=== PATIENT | female | born 1975 | race Hispanic/Latino ===

== ENCOUNTER 2022-09-06 17:49 | Emergency (ER) | payer BC, OTHER ==
[~2022-09-06] VITALS: Ht 152.4 cm; Wt 93.0 kg
[2022-09-06 18:49] LABS: BASOPHILS % (AUTO) 1.1 % (0.0-5.0); EOSINOPHILS % (AUTO) 2.8 % (0.0-8.0); MEAN CORPUSCULAR HEMOGLOBIN 31.6 pg (27.0-33.0); MEAN CORPUSCULAR HGB CONC 34.5 g/dL (32.0-36.0); MEAN CORPUSCULAR VOLUME 91.5 fL (79-99); MONOCYTES % (AUTO) 7.2 % (3.0-13.0); NEUTROPHILS % (AUTO) 61.1 % (40.0-77.0); PLATELET COUNT (AUTO) 186 K/uL (130-400); RED BLOOD CELL COUNT(AUTO) 4.37 MIL/uL (4.00-5.50); RED CELL DISTRIBUTION WIDTH 12.6 % (11.0-15.5); WHITE BLOOD COUNT (AUTO) 5.3 K/uL (4.8-10.8)
[2022-09-06 19:12] LABS: CREATININE 0.8 mg/dL (0.5-1.5); POTASSIUM 3.7 mmol/L (3.5-5.1)
[2022-09-06 19:27] LABS: ALBUMIN 4.6 g/dL (3.5-5.0); MAGNESIUM 1.9 mg/dL (1.80-2.40); TOTAL PROTEIN, SERUM 7.7 g/dL (6.0-8.3)
[2022-09-06 19:47] VITALS: BP 137/86
[2022-09-06 20:17] LABS: THYROID STIMULATING HORMONE 1.41 uIU/mL (0.36-3.74)
[2022-09-06 20:26] LABS: APPEARANCE,URINE CLOUDY (CLEAR); BILIRUBIN,URINE NEGATIVE (NEGATIVE); COLOR,URINE YELLOW (YELLOW); GLUCOSE, URINE (UA) NEGATIVE (NEGATIVE); KETONES,URINE NEGATIVE (NEGATIVE); LEUKOCYTE ESTERASE ,URINE 25 Leu/uL (NEGATIVE); NITRATE,URINE NEGATIVE (NEGATIVE); OCCULT BLOOD,URINE NEGATIVE (NEGATIVE); PROTEIN,URINE 20 mg/dL (NEGATIVE)
[2022-09-06 20:27] LABS: AMPHET/METH SCREEN,URINE NEGATIVE (NEGATIVE); BARBITURATE SCREEN, URINE NEGATIVE (NEGATIVE); BENZODIAZEPINES SCREEN,URINE NEGATIVE (NEGATIVE); CANNABINOID SCREEN,URINE NEGATIVE (NEGATIVE); COCAINE SCREEN,URINE NEGATIVE (NEGATIVE); OPIATE SCREEN,URINE NEGATIVE (NEGATIVE); PHENCYCLIDINE SCREEN,URINE NEGATIVE (NEGATIVE)
[2022-09-06 20:29] LABS: BACTERIA,URINE RARE /HPF (None Seen); MUCUS,URINE RARE LPF (None Seen); SQUAMOUS EPITHELIAL CELL,UR MOD /HPF (0-2)
== END 2022-09-06 20:36 | disposition home or self-care (01) ==
LOC: EDH 17:49
DX: R00.0 Tachycardia, unspecified (principal); R42 Dizziness and giddiness; R06.02 Shortness of breath; Z88.0 Allergy status to penicillin; Z88.6 Allergy status to analgesic agent
CPT/HCPCS: 36415; 80050; 80053; 80305; 81001; 83605; 83735; 84443; 84484; 85025; 87088; 93005

== ENCOUNTER 2023-03-06 12:56 | Emergency (ER) | payer BC ==
[~2023-03-06] VITALS: Ht 149.9 cm; Wt 100.7 kg
[2023-03-06 13:22] VITALS: BP 136/86
== END 2023-03-06 13:45 | disposition home or self-care (01) ==
LOC: EDH 12:56
DX: R04.0 Epistaxis (principal); Z88.6 Allergy status to analgesic agent; Z90.49 Acquired absence of other specified parts of digestive tract; Z88.0 Allergy status to penicillin
CPT/HCPCS: 99281

== ENCOUNTER 2024-04-18 19:44 | Emergency (ER) | payer BC ==
[~2024-04-18] VITALS: Ht 149.9 cm; Wt 96.2 kg
[~2024-04-18 19:44] MED LIST: LACT1TAB26 PO; LEVO-70 PO; METR-172 PO
[2024-04-18 20:09] VITALS: BP 147/88; PULSE 90; RESP 18; O2SAT 100
== END 2024-04-18 20:28 | disposition home or self-care (01) ==
LOC: EDH 19:44
DX: S63.592A Other specified sprain of left wrist, initial encounter (principal); W18.39XA Other fall on same level, initial encounter; Y93.89 Activity, other specified; Y92.89 Other specified places as the place of occurrence of the external cause; Y99.8 Other external cause status
CPT/HCPCS: 29125; 73110

== ENCOUNTER 2025-02-19 15:49 | Emergency (ER) | payer BC ==
[~2025-02-19] VITALS: Ht 149.9 cm; Wt 104.3 kg
[2025-02-19] MEDS: Solu-medROL 125MG VIAL IVP ONE (16:11)
[2025-02-19] MEDS: EPINEPHrine PF 1MG (1:1,000) 1 MG/ML AMP IM ONE (16:11)
[2025-02-19] MEDS: LACTATED RINGERS 1000ML 1,000 ML IV ONE (16:12)
[2025-02-19] MEDS: DiphenhydrAMINE HCL 50 MG/ML VIAL IV ONE (16:12)
--- NOTE | 2025-02-19 16:19 | NUR ---
CODE STROKE CALLED PT MOVED TO ED ROOM 7
[2025-02-19 16:48] VITALS: BP 144/75; PULSE 87; RESP 18; TEMP 98.2; O2SAT 97
--- NOTE | 2025-02-19 17:20 | ERN ---
General Chief Complaint: Allergic Reaction Stated Complaint: ALLERGIC REACTION TO LYSOL Time Seen by MD: 15:50 History of Present Illness Initial Comments 49-year-old female who presents for allergic reaction. Patient has a known allergy to Lysal. She came in contact with the at work today. She immediately felt tightness in her throat and had a raspy voice with coughing. She reports she has had significant airway compromise for in the past but has never been intubated. She has not taken any medications prior. She has been in her normal state of health prior to the incident today. Allergies: Coded Allergies: Penicillins (Unverified Allergy, Unknown, 09/06/22) aspirin (Unverified Allergy, Unknown, 09/06/22) morphine (Unverified Allergy, Unknown, 09/18/23) Home Meds Active Scripts Epinephrine (Epinephrine) 0.3 Mg/0.3 Ml Auto.injct, 1 SYR IM ONCE for 1 Day, #0.6 ML 0 Refills Prov:SARA GRAY DO 02/19/25 Prednisone (Prednisone) 20 Mg Tablet, 1 TAB PO BID for 5 Days, #10 TAB 0 Refills Prov:SARA GRAY DO 02/19/25 Lactobacillus Acidophilus (Probiotic Acidophilus) 2 Billion Cell Tablet, 1 EACH PO BID for 10 Days, #20 TAB Prov:SHELBY VIVEROS NP 09/21/23 Metronidazole (Metronidazole) 500 Mg Tablet, 500 MG PO TID for 10 Days, #30 TAB Prov:SHELBY VIVEROS NP 09/21/23 Levofloxacin (Levofloxacin) 500 Mg Tablet, 500 MG PO DAILY for 10 Days, #10 TAB Prov:SHELBY VIVEROS NP 09/21/23 Past Medical History Past Medical History: No Pertinent History Medical History Other: LIVER CIRRHOSIS Past Surgical History: Other Surgical History Other: BACK Family History Family History: Negative Social History Social History: Negative, Lives with family Female( History) History: Not Applicable ROS Dictation CONSTITUTIONAL: No chills, no fever, no weakness, no diaphoresis, no malaise. HEAD/FACE: No signs of trauma. EENT: Upper airway tightness itching RESPIRATORY: No cough, no orthopnea, no SOB, no stridor, no wheezing. CARDIOVASCULAR: No chest pain, no edema, no palpitations, no syncope. GASTROINTESTINAL/ABDOMINAL: No abdominal pain, no constipation, no diarrhea, no nausea, no vomiting. GENITOURINARY: No abnormal discharge, no dysuria, no frequent urination, no hematuria. No complaints of pain in the genitals. MUSCULOSKELETAL: No back pain, no gout, no joint pain, no joint swelling, no muscle pain, no muscle stiffness, no neck pain. INTEGUMENTARY: No change in color, no change in hair/nails, no dryness, no lesion, no lumps, no rash. NEUROLOGICAL/PSYCH: No anxiety, not depressed, no emotional problem, no headac he, no numbness, no pre-existing deficit, no history of seizures, no tremors, no weakness. HEMATOLOGIC/LYMPHATIC: Not anemic, no history of blood clots, no apparent bleeding, no bruising, glands not swollen. All Systems Negative, Except as Noted. Physical Exam Physical Exam Dictation VITAL SIGNS: Reviewed. GENERAL APPEARANCE: Alert, oriented x3, moderate distress HEAD AND FACE: Non-traumatic. EYES: PERRL, pink conjunctivas, eyelid no trauma, anterior chamber clear. EARS: Pinnas intact and no signs of trauma or erythema. Ear canals clear and no discharge. TMs no erythema. NOSE: No discharge, no bleeding. OROPHARYNX: Mouth normal, teeth no caries, tongue pink. Pharynx clear, no erythema. Tonsils no exudates, no abscesses noted. Mucous membrane moist. NECK: Supple, non-tender, no thyromegaly, no masses, no JVD, no bruits. BREAST: Deferred. CHEST: No tenderness, no crepitus, no paradoxical movement, no retractions. LUNGS: Clear lung blandon on auscultation, no major respiratory distress, she was have a raspy voice and continues to cough. No stridor. The oral airway appears normal. No tongue swelling or mouth swelling. HEART: Regular rate, regular rhythm, no murmur, no gallops. VASCULAR: No peripheral edema. ABDOMEN: Soft, positive bowel sounds, nondistended, no guarding, nontender, no rebound, no masses no hepatomegaly, no splenomegaly, no Lucia's sign, no hernias. RECTAL: Deferred. GENITAL: Deferred. NEUROLOGICAL: Normal speech, gross motor function intact, gross sensory function intact. MUSCULOSKELETAL: Neck nontender, full range of motion, back nontender, full range of motion. EXTREMITIES: Nontender, full range of motion. SKIN: Color pink, dry, no turgor, no rash, no lacerations, no abrasions, no contusions. LYMPHATICS: Deferred. MDM CC: Allergic reaction tightness to throat after exposure to known allergen (lysal) Historian: patient Comorbidities: known allergy, obesity Limitations by social determinants of health: None Differential diagnosis: Allergic reaction, anaphylaxis, airway compromise Patient initially had stable vital signs but she was an obvious distress. She was raspy voice continue least cough and says that her throat feels tight. There is no obvious stridor, she was effectively moving air. Lung sounds are clear. There was no rash. Patient reports she had had significant compromise to her airway in the past but he was never been intubated due to similar exposure. Labs and studies: None indicated here in the ER Patient was having an allergic reaction since airway is involved and she has had significant problems in the past with a similar presentations, restarted IV. She received IV fluids, Solu-Medrol, but diphenhydramine. Also gave her IM epinephrine. Patient was monitored for 90 minutes here in the ER. Her symptoms dramatically improved. Re-evaluation: No longer coughing no stridor no airway compromise no rash. She reports that she feels back to baseline. Plan: We will DC with a prescription for prednisone recommend antihistamine. We will also give her a prescription for an EpiPen. We discussed how to use this and when to use this. I recommended that she follows up with her PCP as needed. Return to the emergency department as needed. ED Course Orders Procedure Category Date Status Time Lactated Ringers PHA 02/19/25 Complete 1000ml (Lactated 16:30 Methylprednisolone PHA 02/19/25 Complete Succ 125mg (Solu-Medr 16:30 Epinephrine Pf 1mg PHA 02/19/25 Complete (1:1,000) (Adrenaline 16:30 Diphenhydramine Hcl PHA 02/19/25 Complete (Benadryl Inj) 16:30 Current Medications Medications (Trade) Dose Ordered Sig/Bridgette Route PRN Reason Start Time Stop Time Status Last Admin Dose Admin Diphenhydramine HCl (BENAdryl INJ) 25 mg ONCE ONCE IV 02/19/25 16:30 02/19/25 16:31 DC 02/19/25 16:12 Epinephrine HCl (ADRENaline PF 1MG AMP) 0.3 mg ONCE ONCE IM 02/19/25 16:30 02/19/25 16:31 DC 02/19/25 16:11 Lactated Ringer's 1,000 ml @ 0 mls/hr ONCE ONCE IV 02/19/25 16:30 02/19/25 16:31 DC 02/19/25 16:12 Methylprednisolone Sodium Succinate (Solu-medROL 125MG) 125 mg ONCE ONCE IVP 02/19/25 16:30 02/19/25 16:31 DC 02/19/25 16:11 Vital Signs Date Time Temp Pulse Resp B/P (MAP) Pulse Ox O2 Delivery O2 Flow Rate FiO2 02/19/25 16:48 98.2 87 18 144/75 97 Room Air* 0 21 02/19/25 16:26 92 22 128/70 98 Room Air* 0 21 02/19/25 16:02 98.2 88 20 136/82 99 Room Air 0 DX & DISP Disposition: Discharge Departure Impression: Primary Impression: Allergic reaction Critical Time: 30 minutes (Critical Care Procedure NoteAuthorized and Performed by: meTotal critical care time: Approximately 36 minutesDue to a high probability of clinically significant, life threatening deterioration, the patient required my highest level of preparedness to intervene emergently and I personally spent this critical care time directly and personally managing the patient. This critical care time included obtaining a history; examining the patient; pulse oximetry; ordering and review of studies; arranging urgent treatment with development of a management plan; evaluation of patient's response to treatment; frequent reassessment; and, discussions with other providers.This critical care time was performed to assess and manage the high probability of imminent, life-threatening deterioration that could result in multi-organ failure. It was exclusive of separately billable procedures and treating other patients and teaching time.Please see MDM section and the rest of the note for further information on patient assessment and treatment.) Condition: Stable Scripts Epinephrine (Epinephrine) 0.3 Mg/0.3 Ml Auto.injct 1 SYR IM ONCE for 1 Day, #0.6 ML 0 Refills Prov: SARA GRAY DO 02/19/25 Prednisone (Prednisone) 20 Mg Tablet 1 TAB PO BID for 5 Days, #10 TAB 0 Refills Prov: SARA GRAY DO 02/19/25 Additional Instructions: You had an allergic reaction here today. You received IV steroids, intramuscular epinephrine, and IV Benadryl. I have prescribed prednisone, which is an anti-inflammatory steroid. You can take this twice per day as needed for symptoms. I recommend taking it for at least 48 hours. If you feel better after that you can stop taking this medication. I have prescribed an EpiPen. If you have any respiratory distress to her allergic reaction or any other concerning symptom, please use the EpiPen and come to the ER. For your symptoms over the next few days, you can take [id number] Benadryl or [id number] Zyrtec. Please return to the emergency department if you have any concerns. Referrals: JACKIE CONTI MD (PCP) SARA GRAY DO Feb 19, 2025 17:20
[2025-02-19] MEDS ORDERED: EPIN0.3P19 IM (17:32)
[2025-02-19] MEDS ORDERED: PRED20TA3 PO (17:32)
== END 2025-02-19 17:45 | disposition home or self-care (01) ==
LOC: EDH 15:49
DX: T78.40XA Allergy, unspecified, initial encounter (principal); E66.9 Obesity, unspecified; Z79.52 Long term (current) use of systemic steroids; Z88.0 Allergy status to penicillin; Z88.5 Allergy status to narcotic agent; Z88.6 Allergy status to analgesic agent; X58.XXXA Exposure to other specified factors, initial encounter
CPT/HCPCS: 99291; 96374; 96361; 96375; 96372; J2919; J7120; J1200; J0171; 99284